=== PATIENT | female | born 1950 | race Caucasian/White ===

== ENCOUNTER → 2016-09-01 | Outpatient (CLI) | payer OTHER ==
[2016-09-01 15:16] LABS: BASOPHILS # (AUTO) 0.04 10*3/UL; BASOPHILS % (AUTO) 0.7 % (0-1); EOSINOPHILS # (AUTO) 0.11 10*3/UL; HEMATOCRIT 37.3 % (37.0-47.0); HEMOGLOBIN 12.8 g/dL (12.0-16.0); LYMPHOCYTES # (AUTO) 0.68 10*3/uL; MEAN CORPUSCULAR HEMOGLOBIN 29.4 PG (27-31); MEAN CORPUSCULAR HGB CONC 34.3 g/dL (33-37); MEAN CORPUSCULAR VOLUME 85.6 FL (81-99); MEAN PLATELET VOLUME 9.4 FL (7.4-12.2); MONOCYTES # (AUTO) 0.53 10*3/UL (0.3-0.8); MONOCYTES % (AUTO) 9.4 % (5-15); NEUTROPHILS # (AUTO) 4.23 10*3/UL; NEUTROPHILS % (AUTO) 75.4 % (50-80); RED BLOOD COUNT 4.36 10^6/uL (4.20-5.40)
[2016-09-01 15:18] LABS: PLATELET MORPHOLOGY COMMENT NORMAL MORPHOLOGY (NORM); RBC MORPHOLOGY COMMENT NORMAL MORPHOLOGY (NORM); WBC MORPHOLOGY COMMENT NORMAL MORPHOLOGY (NORM)
[2016-09-01 15:22] LABS: BLOOD UREA NITROGEN 15 mg/dL (7-22); BUN/CREATININE RATIO 18.75 (6-20); CALCIUM 9.3 mg/dL (8.7-10.7); EST GLOMERULAR FILTRATION > 60 (>60 ml/min/1.73m(2)); SERUM ALBUMIN 4.1 g/dL (3.5-4.8)
== END ==
LOC: LAB 14:55
PROVIDERS: ATTEND Internal Medicine
DX: C50.812 Malignant neoplasm of overlapping sites of left female breast (principal)
CPT/HCPCS: 36415; 80053; 85025; 86300

== ENCOUNTER → 2016-11-26 | Outpatient (CLI) | payer OTHER ==
--- NOTE | 2016-11-26 11:01 | DI ---
MAMMO U/L DIAGNOSTIC,11/26/2016 10:01 AM: Clinical History: Status post surgery for left-sided malignant mass. Previous Exam: April 21, 2016 Findings: CC and MLO views of the left breast are obtained, and demonstrate new architectural distortion and de nsity within the left upper breast consistent with prior surgery. There is also a hypodense halo arou nd the mass within the left breast which may represent an oil cyst. Computer-aided diagnostics were applied. There is predominantly fatty replaced breast parenchyma. Physical examination revealed no definite palpable abnormality. There is some firmness in the area wh ich appears to represent simple postsurgical change. Postsurgical changes are seen within the left axilla. Physical examination of the axilla also demonst rated postsurgical changes. Impression: New area of architectural distortion within the left upper breast 6 cm from the nipple corresponding with the area of prior surgery. This most likely represents postsurgical and post radiation changes. Recommendations: Recommend followup imaging in March when the right breast will be due for annual s creening. BI-RADS: 3-probably benign findings.
== END ==
LOC: MAMMO 09:54
PROVIDERS: ATTEND Physician Assistant
DX: C50.812 Malignant neoplasm of overlapping sites of left female breast (principal); Z92.3 Personal history of irradiation; Z98.890 Other specified postprocedural states
CPT/HCPCS: G0206

== ENCOUNTER → 2016-12-18 | Outpatient (CLI) | payer OTHER | LOC: MMPC 11:11 | PROVIDERS: ATTEND Surgery | DX: C50.112 Malignant neoplasm of central portion of left female breast (principal) | CPT/HCPCS: 99212; G0463 ==

== ENCOUNTER → 2016-12-28 | Outpatient (CLI) | payer OTHER | LOC: MOB LAB 10:41 | PROVIDERS: ATTEND Nurse Practitioner Family | DX: I50.9 Heart failure, unspecified (principal); R60.0 Localized edema; R06.09 Other forms of dyspnea | CPT/HCPCS: 36415; 83880; 99213 ==

== ENCOUNTER → 2017-01-07 | Outpatient (CLI) | payer OTHER ==
--- NOTE | 2017-01-07 15:00 | DI ---
XR FOOT COMPLETE MIN 3VW,01/07/2017 11:38 AM: Clinical History: Right foot pain Previous Exam: None at this facility. Findings: 3 views of the right foot are obtained, and demonstrate anatomic alignment without fractures. The steve rounding soft tissues are unremarkable. There is enthesopathy noted at the insertion of the plantar fascia and the insertion of the Achilles tendon. Impression: No acute fracture.
--- NOTE | 2017-01-07 15:00 | DI ---
XR FOOT COMPLETE MIN 3VW,01/07/2017 11:38 AM: Clinical History: Left foot pain Previous Exam: None at this facility. Findings: 3 views of the left foot are obtained, and demonstrate anatomic alignment without fractures. There ar e some osteophytes noted at the intertarsal joint of the navicular with the cuneiforms. There is no fracture seen. There is enthesopathy at the insertion of the plantar fascia and the Achilles tendon. There is some mild dorsal soft tissue swelling. Impression: Mild degenerative changes as above otherwise unremarkable.
--- NOTE | 2017-01-07 16:07 | DI ---
XR ANKLE COMPLETE MIN 3VW,01/07/2017 11:40 AM: Clinical History: Left ankle pain of unspecified chronicity. Previous Exam: None at this facility. Findings: 3 views left ankle are obtained, and demonstrate anatomic alignment without fractures. The surroundin g soft tissues are unremarkable. There is enthesopathy noted at the insertion of the Achilles tendon and the plantar fascia. There is mild degenerative change of the naviculocuneiform joint. Impression: Mild degenerative changes otherwise unremarkable.
--- NOTE | 2017-01-07 16:41 | DI ---
XR ANKLE COMPLETE MIN 3VW,01/07/2017 11:40 AM: Clinical History: Left ankle pain of unspecified chronicity. Previous Exam: None at this facility. Findings: 3 views of the right ankle are obtained, and demonstrate anatomic alignment without fractures. There is mild soft tissue swelling. There is some enthesopathy at the insertion of the plantar fascia and the Achilles tendon. Impression: Degenerative changes of the ankle and foot otherwise unremarkable.
== END ==
LOC: ORTHO 12:07
PROVIDERS: ATTEND Orthopaedic Surgery
DX: M79.672 Pain in left foot (principal); M79.671 Pain in right foot; M25.572 Pain in left ankle and joints of left foot; M19.072 Primary osteoarthritis, left ankle and foot; M19.071 Primary osteoarthritis, right ankle and foot
CPT/HCPCS: 73610; 73630 ×2; 99214; G0463

== ENCOUNTER → 2017-01-20 | Outpatient (CLI) | payer OTHER ==
--- NOTE | 2017-01-20 15:52 | DI ---
US UP/LOW EXT VEINS U/L OR LTD,01/20/2017 1:56 PM: Clinical History: Edema of left lower extremity. Previous Exam: None at this facility. Findings: Multiple grayscale and color Doppler sonographic images are obtained of the deep veins of the left lo wer extremity. There is complete coaptation upon graded compression throughout. The venous waveforms were normal with normal respiratory variation and augmentation. Impression: No evidence of deep venous thrombosis of the left lower extremity.
== END ==
LOC: US 13:51
PROVIDERS: ATTEND Student in an Organized Health Care Education/Training Program
DX: R60.0 Localized edema (principal)
CPT/HCPCS: 93971